=== PATIENT | female | born 2000 | race Caucasian/White ===

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

== ENCOUNTER → 2022-11-11 | Outpatient (CLI) | payer MEDICAID, OTHER, SELFPAY | LOC: M LAB 17:12 | PROVIDERS: ATTEND Nurse Practitioner Adult Health | DX: Z13.0 Encounter for screening for diseases of the blood and blood-forming organs and certain disorders involving the immune mechanism (principal) ==